=== PATIENT | female | born 1955 | race Caucasian/White ===

== ENCOUNTER → 2018-11-06 | Outpatient (CLI) | payer OTHER ==
[~2018-11-06] MED LIST: ASPIRIN325 PO; AZITHROMYCIN 2250 MG PO; BENTYL10 MG PO; BENZONATATE100 MG PO; CARDIZEM CD240 M1 PO; CEFDINIR300 MG PO; CELEXA10 MG PO; COLACE 100 MG100 MG PO; COLACE100 MG PO; FLEXERIL PO; LISINOPRIL10 MG PO; MIRALAX255 GM PO; MOM PO; MUCINEX600 MG PO; NORCO 5-325 TA1 EACH PO; OMEPRAZOLE40 MG PO; PEPTO-BISMOL262 M1 PO; PREDNISONE 10 M10 M1 PO; PRILOSEC40 MG PO; STIOLTO RESPIMAT4 GM INH; ULTRAM 50MG TAB50 MG PO; VENTOLIN HFA INH8 GM INH
== END ==
LOC: M.CT 10:27
DX: J98.4 Other disorders of lung (principal); R91.8 Other nonspecific abnormal finding of lung field